=== PATIENT | female | born 1985 | race African-American/Black ===

== ENCOUNTER 2020-08-28 10:47 | Emergency (ER) | payer BC ==
[~2020-08-28] VITALS: Ht 180.3 cm; Wt 115.7 kg
[2020-08-28] MEDS ORDERED: PNV 29-1 TABLE1 EACH PO (11:05)
[2020-08-28 11:18] LABS: URINE BILIRUBIN NEGATIVE (Negative); URINE BLOOD 3+ (Negative); URINE CLARITY CLEAR; URINE COLOR YELLOW; URINE GLUCOSE-RANDOM NEGATIVE (Negative); URINE KETONES NEGATIVE (Negative); URINE LEUKOCYTES-REFLEX NEGATIVE (Negative); URINE NITRITE-REFLEX NEGATIVE (Negative); URINE PROTEIN 2+ (Negative); URINE SPECIFIC GRAVITY 1.025 (1.005-1.030); URINE UROBILINOGEN 0.2 E.U./dl (0.2-1.0)
[2020-08-28 11:28] LABS: ABSOLUTE EOSINOPHILS 0.3 thou/uL (0.0-0.7); ABSOLUTE LYMPHOCYTES 1.9 thou/uL (0.8-5.3); ABSOLUTE MONOCYTES 0.6 thou/uL (0.0-1.2); ABSOLUTE NEUTROPHILS 5.9 thou/uL (1.6-8.1); BASOPHILS 0.4 %; EOSINOPHILS 3.9 %; HEMATOCRIT 38.1 % (37.0-47.0); HEMOGLOBIN 12.7 gm/dL (12.0-15.0); LYMPHOCYTES 21.8 %; MCH 30.6 pg (26.0-34.0); MCHC 33.3 g/dL (28.0-37.0); MCV 91.8 fL (80.0-100.0); MONOCYTES 7.1 %; MPV 7.7 fl. (7.2-11.1); NUCLEATED RBCS 0 /100WBC; PLATELET COUNT* 301 thou/uL (150-400); POLYS 66.8 %; RBC 4.14 mil/uL (4.20-5.00); RDW-CV 13.1 % (10.5-14.5); WBC 8.8 thou/uL (4.0-11.0)
[2020-08-28 11:33] LABS: BACTERIA-REFLEX None Seen /HPF (None Seen); CASTS None Seen /LPF (None Seen); CRYSTALS None Seen /LPF (None Seen); MUCUS None Seen strn/LPF (None Seen); SQUAMOUS 0-3 Few /LPF (0-3); URINE RBC >20 Many /HPF (0-2); URINE WBC-REFLEX 0-5 Rare /HPF (0-5)
[2020-08-28 11:37] LABS: CALCIUM 8.9 mg/dL (8.5-10.1); CREATININE 0.8 mg/dL (0.6-1.3); POTASSIUM 3.8 mmol/L (3.5-5.1)
[2020-08-28 11:42] LABS: ALBUMIN 3.3 g/dL (3.4-5.0); TOTAL BILIRUBIN 0.3 mg/dL (<0.1-1.0); TOTAL PROTEIN 7.1 g/dL (6.4-8.2)
[2020-08-28 13:23] VITALS: BP 123/79
== END 2020-08-28 13:24 | disposition home or self-care (01) ==
LOC: M.ERS 10:47
PROVIDERS: Physician Assistant
DX: O03.9 Complete or unspecified spontaneous abortion without complication (principal); Z3A.12 12 weeks gestation of pregnancy